=== PATIENT | female | born 1960 | race American Indian/Alaskan Native ===

== ENCOUNTER 2018-10-15 14:16 | Emergency (ER) | payer MEDICAID, OTHER ==
--- NOTE | 2018-10-15 14:20 | EDM.PDOC ---
"ED HPI GENERAL MEDICAL PROBLEM - General Chief Complaint: Neurological Problem Stated Complaint: NUMBNESS LEFT SIDE Time Seen by Provider: 10/15/18 14:20 Source of Information: Reports: Patient, Family (), Old Records, RN, RN Notes Reviewed History Limitations: Reports: No Limitations - History of Present Illness INITIAL COMMENTS - FREE TEXT/NARRATIVE: Pt presents to ER by POV with c/o onset of left sided numbness at noon today. Denies visual changes, headache, difficulty with swallowing, or slurred speech. She does feel her speech is not quite normal and her tongue feels thick. She denies motor weakness. Pt denies any history of stroke. She is a daily tobacco smoker for >35yrs and moderately heavy alcohol drinker with Hx of HTN and high cholesterol. No family members have stroke Hx. Pt is left hand dominant. Onset: Today, Unknown/Unsure Onset Date: 10/15/18 Onset Time: 12:00 Duration: Constant Location: Reports: Upper Extremity, Left, Lower Extremity, Left Quality: Reports: Other (Denies pain) Severity: Moderate Improves with: Reports: None Worsens with: Reports: None Associated Symptoms: Reports: No Other Symptoms - Related Data Allergies Allergy/AdvReac Type Severity Reaction Status Date / Time lisinopril Allergy Cough Verified 10/30/15 05:28 mushroom Allergy Anaphylactic Verified 10/15/18 14:45 Shock Penicillins Allergy Vomiting Verified 10/30/15 05:28 pseudoephedrine Allergy Other Verified 10/30/15 05:28 [From [facility]] Home Meds: Home Meds Aspirin [Aspirin EC] 1 tab PO DAILY 10/29/15 [History] Losartan [Cozaar] 1 tab PO DAILY 10/29/15 [History] Multivitamin with Minerals [Multiple Vitamin] 1 tab PO DAILY 10/29/15 [History] Simvastatin [Zocor] 1 tab PO DAILY 10/29/15 [History] Venlafaxine HCl [Venlafaxine HCl ER] 1 tab PO DAILY 10/29/15 [History] Past Medical History HEENT History: Reports: Impaired Vision (glasses) Cardiovascular History: Reports: High Cholesterol, Hypertension Respiratory History: Reports: None Gastrointestinal History: Reports: None, Other (See Below) Other Gastrointestinal History: abnormal liver tests Genitourinary History: Reports: None M[employer] History: Reports: Musculoskeletal History: Reports: None Neurological History: Reports: None Psychiatric History: Reports: Anxiety Endocrine/Metabolic History: Reports: Obesity/BMI 30+ Hematologic History: Reports: None Immunologic History: Reports: None Oncologic (Cancer) History: Reports: None Dermatologic History: Reports: Eczema - Infectious Disease History Infectious Disease History: Reports: Chicken Pox, Measles - Past Surgical History Female Surgical History: Reports: Section Social & Family History - Family History HEENT: Reports: Cataract Cardiac: Reports: Bypass Respiratory: Reports: None GI: Reports: None : Reports: None OBGYN: Reports: None Musculoskeletal: Reports: None Neurological: Reports: None Psychiatric: Reports: Panic Attack Endocrine/Metabolic: Reports: Hyperthyroidism, Hypothyroidism Hematologic: Reports: None Immunologic: Reports: None Dermatologic: Reports: None Oncologic: Reports: Breast, Colon, Prostate - Tobacco Use Smoking Status *Q: Current Every Day Smoker Tobacco Use Within Last Twelve Months: Cigarettes - Caffeine Use Caffeine Use: Reports: None Other Caffeine Use: decaff coffee - Alcohol Use Alcohol Use History: Yes Alcohol Use Frequency: Daily - Living Situation & Occupation Living situation: Reports: , with Spouse ED ROS GENERAL - Review of Systems Review Of Systems: ROS reveals no pertinent complaints other than HPI. ED EXAM, NEURO - Physical Exam Exam: See Below Exam Limited By: No Limitations General Appearance: Alert, WD/WN, No Apparent Distress Eye Exam: Left Eye: Vision Changes (decreased vision in left upper, lateral field), Bilateral Eye: EOMI, PERRL Ears: Normal External Exam, Normal Canal, Hearing Grossly Normal, Normal TMs Nose: Normal Inspection, Normal Mucosa, No Blood Throat/Mouth: Normal Inspection, Normal Lips, Normal Teeth, Normal Gums, Normal Oropharynx, Normal Voice, No Airway Compromise Head Exam: Atraumatic, Normocephalic Neck: Normal Inspection, Supple, Non-Tender, Full Range of Motion. No: Carotid Bruit, Lymphadenopathy (L), Lymphadenopathy (R) Respiratory/Chest: No Respiratory Distress, Lungs Clear, No Accessory Muscle Use , Chest Non-Tender, Decreased Breath Sounds Cardiovascular: Normal Peripheral Pulses, Regular Rate, Rhythm, No Edema, No Gallop, No JVD, No Murmur, No Rub GI/Abdominal: Normal Bowel Sounds, Soft, Non-Tender, No Organomegaly, No Distention, No Abnormal Bruit, No Mass Neurological: Alert, Normal Dorsiflexion, Normal Plantar Flexion, Oriented x 3, Abnormal Finger to Nose (Left), Abnormal Pin Prick (Left face, upper and lower extremity), Other (NIH 4 by my exam.) Back Exam: Normal Inspection Extremities: Normal Range of Motion, Non-Tender, No Pedal Edema Psychiatric: Normal Mood Skin Exam: Warm, Dry, Intact, Normal Color, No Rash EKG INTERPRETATION EKG Date: 10/15/18 Time: 14:33 Rhythm: Other (SR) Rate (Beats/Min): 88 [place]: LAD-Left [place] Deviation P-Wave: Present QRS: Normal ST-T: Normal QT: Normal Comparison: NA - No Prior EKG Course - Vital Signs Last Recorded V/S: Last Vital Signs Temp 89.1 F L 10/15/18 14:40 Pulse 89 10/15/18 14:40 Resp 18 10/15/18 14:40 BP 155/80 H 10/15/18 14:40 Pulse Ox 99 10/15/18 14:40 - Orders/Labs/Meds Orders: Active Orders 24 hr Category Date Time Status Assess Neurological Status [RC] CONTINUOUS Care 10/15/18 14:21 Active Blood Glucose Check, Bedside [RC] STAT Care 10/15/18 14:21 Active Cardiac Monitoring [RC] CONTINUOUS Care 10/15/18 14:21 Active Communication Order [RC] STAT Care 10/15/18 14:21 Active EKG Documentation Completion [RC] URGENT Care 10/15/18 14:44 Active Height and Weight [RC] UPON Care 10/15/18 14:21 Active NIH Stroke Scale [RC] ASDIRECTED Care 10/15/18 14:20 Inactive NIH Stroke Scale [RC] Q15M Care 10/15/18 14:21 Active NIH Stroke Scale [RC] STAT Care 10/15/18 14:21 Active Nursing Bedside Swallow Screen [RC] STAT Care 10/15/18 14:21 Active Oxygen Therapy, ED [RC] ASDIRECTED Care 10/15/18 14:21 Active Peripheral IV Care [RC] . DIRECTED Care 10/15/18 14:21 Active Vital Signs [RC] Q15M Care 10/15/18 14:21 Active Sodium Chloride 0.9% [Normal Saline] 500 ml Med 10/15/18 14:30 Active IV BOLUS Sodium Chloride 0.9% [Saline Flush] Med 10/15/18 14:21 Active 10 ml FLUSH ASDIRECTED PRN Peripheral IV Insertion Adult [OM.PC] Stat Oth 10/15/18 14:21 Ordered Peripheral IV Insertion Adult [OM.PC] Stat Ot 10/15/18 14:21 Ordered Resuscitation Status Stat Resus Stat 10/15/18 14:21 Ordered Medication Orders Sodium Chloride (Normal Saline) 500 mls @ 999 mls/hr IV BOLUS JORDAN Last Admin: 10/15/18 14:43 Dose: 999 mls/hr Sodium Chloride (Saline Flush) 10 ml FLUSH ASDIRECTED PRN PRN Reason: Keep Vein Open Last Admin: 10/15/18 14:44 Dose: 10 ml Labs: Laboratory Tests 10/15/18 10/15/18 10/15/18 Range/Units 14:32 14:32 14:32 WBC 5.4 (5.0-10.0) 10^3/uL RBC 4.40 (4.2-5.4) 10^6/uL Hgb 13.9 (12.0-16.0) g/dL Hct 39.6 (37.0-47.0) % MCV 90.0 (80-100) fL MCH 31.6 (27.0-34.0) pg MCHC 35.1 H (33.0-35.0) g/dL Plt Count 298 (150-450) 10^3/uL Neut % (Auto) 66.9 (42.2-75.2) % Lymph % (Auto) 22.9 (20.5-50.1) % [place] % (Auto) 9.1 H (2-8) % Eos % (Auto) 0.7 L (1.0-3.0) % Baso % (Auto) 0.4 (0.0-1.0) % PT 9.3 (9.0-12.0) SEC INR 0.9 (0.9-1.2) APTT 25.5 (22.0-34.0) SEC Sodium 131 L (135-145) mmol/L Potassium 3.5 L (3.6-5.0) mmol/L Chloride 92 L (101-111) mmol/L Carbon Dioxide 29.0 (21.0-31.0) mmol/L Anion Gap 13.5 BUN 10 (7-18) mg/dL Creatinine 0.5 L (0.6-1.3) mg/dL Est Cr Clr Drug Dosing 98.98 mL/min Estimated GFR (MDRD) > 60 BUN/Creatinine Ratio 20.00 Glucose 103 (74-105) mg/dL POC Glucose (70-105) mg/dl Calcium 9.2 (8.4-10.2) mg/dl Total Bilirubin 0.7 (0.2-1.0) mg/dL AST 40 (10-42) IU/L ALT 31 (10-60) IU/L Alkaline Phosphatase 91 (42-121) IU/L Troponin I < 0.02 (0.00-0.02) ng/ml Total Protein 7.5 (6.7-8.2) g/dl Albumin 4.1 (3.2-5.5) g/dl Globulin 3.4 Albumin/Globulin Ratio 1.21 10/15/18 Range/Units 14:32 WBC (5.0-10.0) 10^3/uL RBC (4.2-5.4) 10^6/uL Hgb (12.0-16.0) g/dL Hct (37.0-47.0) % MCV (80-100) fL MCH (27.0-34.0) pg MCHC (33.0-35.0) g/dL Plt Count (150-450) 10^3/uL Neut % (Auto) (42.2-75.2) % Lymph % (Auto) (20.5-50.1) % [place] % (Auto) (2-8) % Eos % (Auto) (1.0-3.0) % Baso % (Auto) (0.0-1.0) % PT (9.0-12.0) SEC INR (0.9-1.2) APTT (22.0-34.0) SEC Sodium (135-145) mmol/L Potassium (3.6-5.0) mmol/L Chloride (101-111) mmol/L Carbon Dioxide (21.0-31.0) mmol/L Anion Gap BUN (7-18) mg/dL Creatinine (0.6-1.3) mg/dL Est Cr Clr Drug Dosing mL/min Estimated GFR (MDRD) BUN/Creatinine Ratio Glucose (74-105) mg/dL POC Glucose 106 H (70-105) mg/dl Calcium (8.4-10.2) mg/dl Total Bilirubin (0.2-1.0) mg/dL AST (10-42) IU/L ALT (10-60) IU/L Alkaline Phosphatase (42-121) IU/L Troponin I (0.00-0.02) ng/ml Total Protein (6.7-8.2) g/dl Albumin (3.2-5.5) g/dl Globulin Albumin/Globulin Ratio Meds: Medications Generic Name Dose Route Start Last Admin Trade Name Freq PRN Reason Stop Dose Admin Sodium Chloride 500 mls @ 999 mls/hr 10/15/18 14:30 10/15/18 14:43 Normal Saline IV 999 mls/hr BOLUS JORDAN Administration Sodium Chloride 10 ml 10/15/18 14:21 10/15/18 14:44 Saline Flush FLUSH 10 ml ASDIRECTED PRN Administration Keep Vein Open Discontinued Medications Generic Name Dose Route Start Last Admin Trade Name Freq PRN Reason Stop Dose Admin Aspirin 324 mg 10/15/18 14:55 10/15/18 14:57 Aspirin PO 10/15/18 14:56 324 mg ONETIME ONE Administration - Radiology Interpretation Free Text/Narrative:: [facility] Final Radiology Report Call: [phone] assistance Online chat: [email or web address] Name: GERSON DAVIS Age: 58Years F Date: 10/15/2018 SSN: -- : 1960 Study: CT HEAD WO Requesting Physician: CHRISTY GUPTA Images: 144 Addl Studies: Provided Clinical History: Contrast: Without Contrast Medium: Contrast Amount: Contrast Method: Page 1 of 2 EXAM: CT Head Without Contrast EXAM DATE/TIME: 10/15/2018 2:30 PM CLINICAL HISTORY: 58 years old, female; Weakness, extremity and weakness, facial; Patient HX: Left sided weakness and visual disturbance TECHNIQUE: Imaging protocol: Computed tomography of the head without contrast. Radiation optimization: All CT scans at this facility use at least one of these dose optimization techniques: automated exposure control; mA and/or kV adjustment per patient size (includes targeted exams where dose is matched to clinical indication); or iterative reconstruction. Other technique: STROKE PROTOCOL was implemented. COMPARISON: No relevant prior studies available. FINDINGS: Brain: There is mild diffuse cerebral atrophy present, consistent with this patient's age. There is no evidence of acute hemorrhage within the brain parenchyma or the subarachnoid space. The cortical/white matter interfaces are preserved throughout the brain. There is no evidence of an acute ischemic event. Ventricles: There is no significant ventricular effacement or midline shift. The ventricular system demonstrates mild diffuse compensatory enlargement. Bones/joints: The skull is normal. Sinuses: The visualized portions of the sinuses are normal. Mastoid air cells: The mastoid sinuses are normal. Orbits: The orbits are normal. GERSON DAVIS | Final Radiology Report CONFIDENTIALITY STATEMENT This report is intended only for use by the referring physician, and only in accordance with law. If you received this in error, call [phone]. Page 2 of 2 Soft tissues: The extracranial soft tissues are normal. IMPRESSION: No acute abnormality. ASSESSMENT: ASPECTS ([place] Stroke Program Early CT Score) is 10. Thank you for allowing us to participate in the care of your patient. Dictated and Authenticated by: Stanton Tan MD 10/15/2018 2:33 PM Central Time ([place] & [place]) - Re-Assessments/Exams Free Text/Narrative Re-Assessment/Exam: 10/15/18 14:[address] Reggie Evans via [facility] One Call, he advises no tPA at this time, but rapid transfer to [facility] ER for further stroke assessment. Departure - Departure Time of Disposition: 15:05 Disposition: DC/Tfer to Acute Hospital 02 Condition: Serious Clinical Impression: Acute cerebrovascular accident (CVA) - Discharge Information *PRESCRIPTION DRUG MONITORING PROGRAM REVIEWED*: No *COPY OF PRESCRIPTION DRUG MONITORING REPORT IN PATIENT EV: No Forms: ED Department Discharge, Interfacility Transfer EMTALA - My Orders Last 24 Hours: My Active Orders 10/15/18 14:20 NIH Stroke Scale [RC] ASDIRECTED 10/15/18 14:21 Assess Neurological Status [RC] CONTINUOUS Blood Glucose Check, Bedside [RC] STAT Cardiac Monitoring [RC] CONTINUOUS Communication Order [RC] STAT Height and Weight [RC] UPON NIH Stroke Scale [RC] Q15M NIH Stroke Scale [RC] STAT Nursing Bedside Swallow Screen [RC] STAT Oxygen Therapy, ED [RC] ASDIRECTED Peripheral IV Care [RC] . DIRECTED Vital Signs [RC] Q15M Sodium Chloride 0.9% [Saline Flush] 10 ml FLUSH ASDIRECTED PRN Peripheral IV Insertion Adult [OM.PC] Stat Peripheral IV Insertion Adult [OM.PC] Stat Resuscitation Status Stat 10/15/18 14:30 Sodium Chloride 0.9% [Normal Saline] 500 ml IV BOLUS 10/15/18 14:44 EKG Documentation Completion [RC] URGENT - Assessment/Plan Last 24 Hours: My Active Orders 10/15/18 14:20 NIH Stroke Scale [RC] ASDIRECTED 10/15/18 14:21 Assess Neurological Status [RC] CONTINUOUS Blood Glucose Check, Bedside [RC] STAT Cardiac Monitoring [RC] CONTINUOUS Communication Order [RC] STAT Height and Weight [RC] UPON NIH Stroke Scale [RC] Q15M NIH Stroke Scale [RC] STAT Nursing Bedside Swallow Screen [RC] STAT Oxygen Therapy, ED [RC] ASDIRECTED Peripheral IV Care [RC] . DIRECTED Vital Signs [RC] Q15M Sodium Chloride 0.9% [Saline Flush] 10 ml FLUSH ASDIRECTED PRN Peripheral IV Insertion Adult [OM.PC] Stat Peripheral IV Insertion Adult [OM.PC] Stat Resuscitation Status Stat 10/15/18 14:30 Sodium Chloride 0.9% [Normal Saline] 500 ml IV BOLUS 10/15/18 14:44 EKG Documentation Completion [RC] URGENT"
[2018-10-15] MEDS ORDERED: Sodium Chloride 0.9% 10 ML Syringe FLUSH PRN (14:21)
[2018-10-15] MEDS ORDERED: Sodium Chloride 0.9% 500 ML IV SCH (14:30)
[2018-10-15 14:41] VITALS: BP 155/80
[2018-10-15] MEDS ORDERED: Aspirin 81 MG Tab.Chew PO ONE (14:55)
[2018-10-15 14:58] LABS: ANION GAP 13.5; CHLORIDE,CL 92 mmol/L (101-111); SODIUM,NA 131 mmol/L (135-145)
== END 2018-10-15 15:23 ==
LOC: DL.ED 14:16
DX: I63.9 Cerebral infarction, unspecified (principal); I10 Essential (primary) hypertension; F41.9 Anxiety disorder, unspecified; E66.9 Obesity, unspecified; E78.00 Pure hypercholesterolemia, unspecified; Z68.31 Body mass index [BMI] 31.0-31.9, adult; F17.210 Nicotine dependence, cigarettes, uncomplicated; Z88.0 Allergy status to penicillin; Z91.018 Allergy to other foods; Z88.8 Allergy status to other drugs, medicaments and biological substances; Z79.82 Long term (current) use of aspirin; Z79.899 Other long term (current) drug therapy
CPT/HCPCS: 36415; 70450; 80053; 82962; 84484; 85025; 85610; 85730; 93005; 96365; 99285; A9270; J7040

== ENCOUNTER 2021-07-12 07:07 | Day surgery (SDC) | payer MEDICAID ==
[~2021-07-12 07:07] MED LIST: Dextrose 5%-0.45% NaCl 1,000 ML IV SCH; Midazolam 1 MG/ML 2 ML SDV ONE; Sodium Chloride 0.9% 10 ML Syringe FLUSH PRN; Sodium Chloride 0.9% 10 ML Syringe FLUSH SCH; fentaNYL 100 MCG/2 ML SDV ONE
[2021-07-12] MEDS ORDERED: fentaNYL 100 MCG/2 ML SDV IV ONE ×4 (07:08→08:41)
[2021-07-12] MEDS ORDERED: Midazolam 1 MG/ML 2 ML SDV IV ONE ×7 (07:08→08:40)
[2021-07-12 10:58] VITALS: BP 137/80; PULSE 75
== END 2021-07-12 11:05 | disposition home or self-care (01) ==
LOC: DL.ENDO 07:07
PROVIDERS: ATTEND Internal Medicine Gastroenterology
DX: Z12.11 Encounter for screening for malignant neoplasm of colon (principal); K57.30 Diverticulosis of large intestine without perforation or abscess without bleeding; K64.8 Other hemorrhoids; D12.3 Benign neoplasm of transverse colon; D12.4 Benign neoplasm of descending colon; E66.09 Other obesity due to excess calories; F10.20 Alcohol dependence, uncomplicated; I10 Essential (primary) hypertension; E78.5 Hyperlipidemia, unspecified; F41.1 Generalized anxiety disorder; Z88.8 Allergy status to other drugs, medicaments and biological substances; Z68.32 Body mass index [BMI] 32.0-32.9, adult; Z01.812 Encounter for preprocedural laboratory examination; Z20.822 Contact with and (suspected) exposure to COVID-19; Z86.73 Personal history of transient ischemic attack (TIA), and cerebral infarction without residual deficits; Z87.891 Personal history of nicotine dependence
CPT/HCPCS: 45385; 87635; J2250; J3010; J7042; U0002

== ENCOUNTER 2024-11-07 06:26 | Day surgery (SDC) | payer MEDICAID, MEDICARE ==
[2024-11-07] MEDS: Lactated Ringers 1,000 ML IV SCH (07:03)
[2024-11-07 08:48] VITALS: BP 152/72; PULSE 69
[2024-11-07] MEDS ORDERED: Propofol 200 MG/20 ML SDV ONE (09:21)
== END 2024-11-07 08:54 | disposition home or self-care (01) ==
LOC: DL.ENDO 06:26
PROVIDERS: ATTEND Internal Medicine Gastroenterology
DX: Z12.11 Encounter for screening for malignant neoplasm of colon (principal); D12.4 Benign neoplasm of descending colon; D12.5 Benign neoplasm of sigmoid colon; E78.5 Hyperlipidemia, unspecified; E66.09 Other obesity due to excess calories; I10 Essential (primary) hypertension; Z88.8 Allergy status to other drugs, medicaments and biological substances; Z68.32 Body mass index [BMI] 32.0-32.9, adult; Z86.0100 Personal history of colon polyps, unspecified; Z79.899 Other long term (current) drug therapy
CPT/HCPCS: 45385; 88305; J7120